=== PATIENT | male | born 1995 | race Caucasian/White ===

== ENCOUNTER 2019-01-01 17:20 | Emergency (ER) | payer SELFPAY ==
[~2019-01-01] VITALS: Ht 170.2 cm; Wt 65.9 kg
[~2019-01-01 17:20] MED LIST: DENIES MEDS; [UNRECOGNIZED DRUG - REMARK]
[2019-01-01 17:23] VITALS: Ht 170.2 cm; Wt 65.9 kg
[2019-01-01] MEDS ORDERED: IBUP-1542 PO (18:51)
[2019-01-01] MEDS ORDERED: ACET-141 PO (18:51)
--- NOTE | 2019-01-01 18:57 | ERD ---
ER Documentation Chief Complaint Chief Complaint pt is bib self with c/o abd pain x 2 wks, HPI 23-year-old male presents epigastric abdominal pain times 2 weeks. He states that the pain is intermittent. He has 1 out of 10 pain without movement, 8 out of 10 pain with movement. States that he has been lifting heavy at work. He also has been exercising with heavy weights. States that the pain is sharp. Denies fevers or chills. Denies nausea or vomiting. Denies chest pain or shortness of breath. No treatments tried at home. Does have a past surgical history of cholecystectomy and appendectomy. ROS All systems reviewed and are negative except as per history of present illness. Medications Home Meds Active Scripts Ibuprofen* (Motrin*) 600 Mg Tab, 600 MG PO Q6H PRN for PAIN AND OR ELEVATED TEMP, #30 TAB Prov:VAZQUEZ RAI DO 01/01/19 Acetaminophen* (Acetaminophen*) 500 MG Extra Strength Tablet, 500 MG PO Q4H PRN for PAIN AND OR ELEVATED TEMP, #30 TAB Prov:VAZQUEZ RAI DO 01/01/19 Reported Medications [Meds Unk] No Conflict Check 02/19/12 [Denies Meds] No Conflict Check 02/28/11 Allergies Allergies: Coded Allergies: No Known Drug Allergy (Verified Allergy, Unknown, 02/19/12) PMhx/Soc History of Surgery: Yes ( RUPTURED APPENDECTOMY OCT 2008) Anesthesia Reaction: No Hx Neurological Disorder: No Hx Respiratory Disorders: No Hx Cardiac Disorders: No Hx Miscellaneous Medical Probl: No Hx Alcohol Use: No Hx Substance Use: Yes (ADMITS TO MARIJUANA USE) Hx Tobacco Use: No Physical Exam Vitals Vital Signs Date Temp Pulse Resp B/P (MAP) Pulse Ox O2 O2 Flow FiO2 Time Delivery Rate 01/01/19 98.3 91 16 118/65 98 17:23 (82) Physical Exam Const: No acute distress Resp: Clear to auscultation bilaterally Cardio: Regular rate and rhythm, no murmurs Abd: Soft, non distended. Normal bowel sounds, mild epigastric tenderness palpation, no palpable bulge noted. No McBurney's point tenderness, no Taylor sign, no rebound or guarding noted Skin: No petechiae or rashes Back: No midline or flank tenderness Ext: No cyanosis, or edema Neur: Awake and alert Psych: Normal Mood and Affect Procedures/MDM Medical Decision Making: Differential diagnosis includes but not limited to acute gastritis, acute gastroenteritis, pancreatitis, muscle strain Patient appeared well on physical exam. Nontoxic appearing. There is mild epigastric tenderness palpation. The tenderness is noted over the musculature. No palpable masses or hernia. There is low suspicion for acute abdomen. Patient likely has a muscle strain given recent history of heavy lifting at work and heavy weights for exercising. Prescription(s): Patient given prescription for supportive medications . Patient advised to follow up with PCP in 1-2 days. Patient advised to return to ED for new or worsening symptoms. Patient stable on discharge from the ED. Disclaimer: Inadvertent spelling and grammatical errors are likely due to EHR/dictation software use and do not reflect on the overall quality of patient care. Also, please note that the electronic time recorded on this note does not necessarily reflect the actual time of the patient encounter. Departure Diagnosis: Primary Impression: Abdominal pain Abdominal location: unspecified location Qualified Codes: R10.9 - Unspecified abdominal pain Condition: Fair Patient Instructions: Abdominal Pain, Muscle Strain, Abdomen Referrals: [facility] YOU HAVE RECEIVED A MEDICAL SCREENING EXAM AND THE RESULTS INDICATE THAT YOU DO NOT HAVE A CONDITION THAT REQUIRES URGENT TREATMENT IN THE EMERGENCY DEPARTMENT. FURTHER EVALUATION AND TREATMENT OF YOUR CONDITION CAN WAIT UNTIL YOU ARE SEEN IN YOUR DOCTORS OFFICE WITHIN THE NEXT 1-2 DAYS. IT IS YOUR RESPONSIBILITY TO MAKE AN APPOINTMENT FOR FOLOW-UP CARE. IF YOU HAVE A PRIMARY DOCTOR --you should call your primary doctor and schedule an appointment IF YOU DO NOT HAVE A PRIMARY DOCTOR YOU CAN CALL OUR PHYSICIAN REFERRAL HOTLINE AT IF YOU CAN NOT AFFORD TO SEE A PHYSICIAN YOU CAN CHOSE FROM THE FOLLOWING [facility] [id number] [facility] [address] [facility] [facility] [address] [facility] [address] [facility] [address] [facility] [facility]. [address] Additional Instructions: Call your primary care doctor TOMORROW for an appointment during the next 1-2 days.See the doctor sooner or return here if your condition worsens before your appointment time. VAZQUEZ RAI DO Jan 01, 2019 18:57
[2019-01-01 18:58] VITALS: BP 137/80; PULSE 61; RESP 18
== END 2019-01-01 19:00 | disposition home or self-care (01) ==
LOC: FTE 17:20
DX: R10.13 Epigastric pain (principal)
CPT/HCPCS: 99282